=== PATIENT | female | born 1960 | race Caucasian/White ===

== ENCOUNTER 2018-03-10 07:49 | Day surgery (SDC) | payer BC ==
[2018-03-07 10:33] VITALS: BMI 26.2
[2018-03-10] MEDS ORDERED: LIDOCAINE HCL 1%, 10 MG/ML (20ML VIAL) ONE ×2 (07:54→10:27)
[2018-03-10] MEDS ORDERED: oxyCODONE HCL 5 MG TABLET PO PRN (08:31)
[2018-03-10] MEDS ORDERED: ONDANSETRON 4 MG/2 ML VIAL IVPUSH PRN (08:31)
[2018-03-10] MEDS ORDERED: PROMETHAZINE HCL 25 MG/1 ML VIAL IVPUSH PRN (08:31)
[2018-03-10] MEDS ORDERED: LACTATED RINGERS SOLUTION 1,000 ML IV SCH (08:45)
[2018-03-10] MEDS ORDERED: MIDAZOLAM HCL 2 MG/2 ML SINGLE DOSE VIAL ONE (09:05)
[2018-03-10] MEDS ORDERED: PROPOFOL 20 ML ONE (09:05)
[2018-03-10] MEDS ORDERED: LIDOCAINE HCL/PF 2% SDV 5ML VIAL ONE (09:06)
[2018-03-10] MEDS ORDERED: LIDOCAINE HCL 1%, 10 MG/ML (20ML VIAL) INF ONE (10:02)
--- NOTE | 2018-03-10 10:17 | HP ---
History & Physical Update - History History: No Change - Physical Physical: No Change - Assessment Assessment: No Change - Plan Plan: No Change
[2018-03-10 12:37] VITALS: BP 131/79; PULSE 72; TEMP 97.7
--- NOTE | 2018-03-10 18:10 | OP ---
DATE OF OPERATION: 03/10/2018 PREOPERATIVE DIAGNOSIS: Left breast mass on ultrasound. POSTOPERATIVE DIAGNOSIS: Left breast mass on ultrasound. PROCEDURE: Left breast ultrasound-guided wire-localized excisional biopsy. SURGEON: Vanessa Klein MD ANESTHESIA: Local, IV sedation. ESTIMATED BLOOD LOSS: Minimal. COMPLICATION: None. This was a sterile procedure. INDICATION: The patient had a mammogram and ultrasound that noted a nodule in the left 1 o'clock location 8 cm from the nipple. An ultrasound-guided needle biopsy showed fatty tissue, which I felt was discordant; therefore, my recommendation was excision to look at this further. The procedure was discussed, with all the questions answered. PROCEDURE IN DETAIL: Patient was brought to [facility] in [place], taken in to the operating room, and after IV sedation, an intraoperative ultrasound was performed by me and the lesion in the left 1 o'clock location, 8 cm from the nipple, was localized with a Kopans wire with Betadine and 1% lidocaine. The left breast was then prepped and draped in the usual sterile fashion. The area in the upper outer left breast was anesthetized with 1% lidocaine without epinephrine. An incision was made in the left 1 o'clock location and the wire was used as a guide to get down to the area of interest. This was excised en bloc and sent as a left breast excision of mass. Hemostasis assured with electrocautery. The parenchyma was approximated with interrupted 2-0 Vicryl, skin approximated with interrupted 3-0 Vicryl and running 4-0 Biosyn. A sterile dressing with Tegaderm and 4 x 4s was applied. She tolerated the procedure well, was taken to recovery in good condition. Layla [id number]
--- NOTE | 2018-03-11 19:16 | PATH ---
Surgical Pathology Report Patient Name: MAMI GREWAL [facility]. Rec. #: [id number] /Age/Gender: 1960 (Age: 57) / F Account: [id number] Location: [facility] SURGICAL Taken: 03/10/2018 Received: 03/10/2018 Reported: 03/11/2018 Physicians: Vanessa Klein M.D. Specimen(s) Received LEFT BREAST MASS Clinical History Left breast abnormal ultrasound-mass 1:00 n+8 Ultrasound core biopsy-fatty tissue (discordant) Final Diagnosis BREAST, LEFT, MASS, EXCISION: BENIGN BREAST TISSUE WITH CHRONIC INFLAMMATION, HISTIOCYTIC PROLIFERATION, GIANT CELL REACTION, AND NODULAR FIBROSIS CONSISTENT WITH FAT NECROSIS IN A BACKGROUND OF FIBROCYSTIC CHANGES. CHANGES OF PREVIOUS BIOPSY PRESENT. Electronically Signed Marlena Amador M.D. Gross Description Received in formalin labeled "left breast mass," is a 4.0 x 3.0 x 2.1 cm unoriented portion of fibroadipose tissue with a needle localization wire present. There is no skin present. The specimen is inked blue and serially sectioned. Sectioning reveals a 0.7 x 0.6 x 0.6 cm ellis, firm nodule at 0.4 cm to the closest radial margin. The specimen is entirely and sequentially submitted in 8 cassettes with the nodule in cassettes 6-7. Total formalin fixation time: Approximately 6 hours 03/10/201803/10/2018
== END 2018-03-10 12:30 | disposition home or self-care (01) ==
LOC: JASU-SURG 07:49
PROVIDERS: ATTEND Surgery
PROC: 0HBU0ZX Excision of Left Breast, Open Approach, Diagnostic (ICD-10-PCS; principal; 2018-03-10 09:00)
DX: D24.2 Benign neoplasm of left breast (principal)
CPT/HCPCS: 88307-TC; 94760